=== PATIENT | female | born 1980 | race Caucasian/White ===

== ENCOUNTER → 2022-06-15 08:56 | Outpatient (CLI) | payer OTHER, SELFPAY ==
--- NOTE | ~2022-06-15 | XR_ITS ---
EXAMINATION: XR lumbar spine 2-3V DATE: 06/15/2022 09:08 INDICATION: Low back pain TECHNIQUE: Anteroposterior and lateral views of the lumbar spine, and cone-down lateral view of the l umbosacral junction were obtained. COMPARISON: None. FINDINGS: There are 3 mm of anterolisthesis of L5 on S1. Bone alignment is otherwise normal. There is no fracture. The vertebral body heights are maintained. The intervertebral disc spaces are normal. 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 A large volume of colonic stool is present. IMPRESSION: 1. Mild lumbar spondylosis. 2. Constipation. Reviewed, dictated and finalized at location B.
== END ==
PROVIDERS: PCP Family Medicine; Visit Provider Nurse Practitioner Family
DX: M47.896 Other spondylosis, lumbar region (principal); K59.00 Constipation, unspecified
CPT/HCPCS: 72100

== ENCOUNTER → 2022-08-14 12:48 | Outpatient (CLI) | payer OTHER, SELFPAY ==
--- NOTE | ~2022-08-14 | MM_ITS ---
EXAMINATION: MM screening magda BI w dmitry HISTORY: Screening TECHNIQUE: Craniocaudal and mediolateral oblique 3-D tomosynthesis images were obtained and synthetic 2-D images were generated. CAD analysis was submitted and interpreted. COMPARISON: No prior mammogram is available for comparison at this institution. BREAST PARENCHYMAL COMPOSITION: The breasts are heterogeneously dense, which may obscure small masses FINDINGS: There is no evidence of suspicious mass, calcification, or architectural distortion to sugg est malignancy in either breast. There has been no suspicious interval change. IMPRESSION: 1. No mammographic evidence of malignancy. 2. Recommend routine screening mammography in one year. BI-RADS Category 1: Negative Reviewed, dictated and finalized at location A. RESOURCE MANAGER
== END ==
PROVIDERS: PCP Family Medicine; Visit Provider Obstetrics & Gynecology
DX: Z12.31 Encounter for screening mammogram for malignant neoplasm of breast (principal)
CPT/HCPCS: 77063; 77067

== ENCOUNTER 2022-09-28 09:36 | Outpatient (CLI) | payer OTHER, SELFPAY ==
--- NOTE | ~2022-09-28 | MR_ITS ---
MRI of the lumbar spine Clinical History: Pain, abnormal x-ray Technique: Axial T2-weighted images, and sagittal T1-weighted, T2-weighted, and T2 fat-sat images wer e acquired. Findings: There is no fracture or subluxation of lumbar spine. Vertebral bodies maintain normal heigh t and alignment. No suspicious or focal bone marrow signal abnormality identified. At L1-L2, L2-L3, L3-L4, there is no disc bulge or herniation. No spinal canal stenosis or neural fora ruperto narrowing at these levels. At L4-L5, there is mild central posterior disc protrusion which minimally effaces the ventral thecal sac. There is mild facet arthropathy. Neural foramina are preserved. At L5-S1, there is mild disc desiccation and minimal facet joint degenerative change. No spinal canal stenosis or definite neural foraminal narrowing. Paravertebral soft tissues are unremarkable. Impression: Minimal degenerative changes of the lower lumbar spine, as detailed above. Reviewed, dictated and finalized at [facility]. IC WORKER Impression: Minimal degenerative changes of the lower lumbar spine, as detailed above.
== END 2022-09-28 09:37 | disposition home or self-care (01) ==
PROVIDERS: PCP Family Medicine; Visit Provider Nurse Practitioner Family
DX: M43.16 Spondylolisthesis, lumbar region (principal); R20.2 Paresthesia of skin
CPT/HCPCS: 72148

== ENCOUNTER 2023-08-30 10:48 | Outpatient (CLI) | payer OTHER, SELFPAY ==
--- NOTE | ~2023-08-30 | MM_ITS ---
EXAMINATION: MM screening magda BI w dmitry HISTORY: Screening mammogram TECHNIQUE: Craniocaudal and mediolateral oblique 3-D tomosynthesis images were obtained and synthetic 2-D images were generated. CAD analysis was submitted and interpreted. COMPARISON: 08/14/2022 BREAST PARENCHYMAL COMPOSITION: The breasts are heterogeneously dense, which may obscure small masses . FINDINGS: No suspicious mass, calcification, or architectural distortion are identified in either brooke ast to suggest malignancy. There has been no suspicious interval change. IMPRESSION: 1. No mammographic evidence of malignancy. 2. Recommend routine screening mammography in one year. BI-RADS Category 1: Negative Reviewed, dictated and finalized at location A. CTOR OF DATABASE MARKETING
== END 2023-08-30 10:49 | disposition home or self-care (01) ==
LOC: CHSIMG 10:50
PROVIDERS: PCP Family Medicine; Visit Provider Obstetrics & Gynecology
DX: Z12.31 Encounter for screening mammogram for malignant neoplasm of breast (principal)
CPT/HCPCS: 77063; 77067

== ENCOUNTER 2024-09-10 08:18 | Outpatient (CLI) | payer OTHER, SELFPAY ==
--- NOTE | ~2024-09-10 | MM_ITS ---
EXAMINATION: MM screening magda BI w dmitry HISTORY: Screening TECHNIQUE: Craniocaudal and mediolateral oblique 3-D tomosynthesis images were obtained and synthetic 2-D images were generated. CAD analysis was submitted and interpreted. COMPARISON: Comparison to multiple prior studies sequentially, with oldest reviewed study dated 07/27. BREAST PARENCHYMAL COMPOSITION: Dense: The breasts are extremely dense, which lowers the sensitivity of mammography. FINDINGS: There is no evidence of suspicious mass, calcification, or architectural distortion to sugg est malignancy in either breast. There has been no suspicious interval change. IMPRESSION: 1. No mammographic evidence of malignancy. 2. Recommend routine screening mammography in one year. BI-RADS Category 1: Negative Reviewed, dictated and finalized at location A. PMENT APPLICATION SPECIALIST
== END 2024-09-10 08:19 | disposition home or self-care (01) ==
LOC: CHSIMG 08:19
PROVIDERS: PCP Family Medicine; Visit Provider Obstetrics & Gynecology
DX: Z12.31 Encounter for screening mammogram for malignant neoplasm of breast (principal)
CPT/HCPCS: 77063; 77067